=== PATIENT | male | born 1950 | race Caucasian/White ===

== ENCOUNTER 2021-01-16 14:40 | Inpatient (IN) | payer MEDICARE, OTHER ==
[~2021-01-16] VITALS: Ht 180.3 cm; Wt 122.0 kg
[2021-01-16 15:42] LABS: HEMOGLOBIN 15.2 gm/dl (14.0-17.5); RED BLOOD COUNT 4.86 M/UL (4.20-5.50); WHITE BLOOD COUNT 9.8 K/UL (4.5-11.0)
[2021-01-16] MEDS ORDERED: ALPRAZOLAM1 MG PO (20:10)
[2021-01-16] MEDS ORDERED: PREGABALIN200 MG PO (20:11)
[2021-01-16] MEDS ORDERED: HYDROCODON-ACE1 EAC6 PO (20:11)
[2021-01-16] MEDS ORDERED: ATORVASTATIN CA40 MG PO (20:12)
[2021-01-16] MEDS ORDERED: CLOPIDOGREL75 MG PO (20:13)
[2021-01-16] MEDS ORDERED: CARAFATE 1 GM TA1 GM PO (20:13)
[2021-01-16] MEDS ORDERED: COLCHICINE0.6 MG PO (20:14)
[2021-01-16] MEDS ORDERED: FLOMAX 0.4 MG0.4 MG PO (20:15)
[2021-01-16] MEDS ORDERED: ESOMEPRAZOLE MA40 MG PO (20:15)
[2021-01-16] MEDS ORDERED: HYDROXYZINE PAM25 MG PO (20:17)
[2021-01-16] MEDS ORDERED: LISINOPRIL20 MG PO (20:19)
[2021-01-16] MEDS ORDERED: JARDIANCE25 MG PO (20:19)
[2021-01-16] MEDS ORDERED: METOPROLOL SUCC25 MG PO (20:27)
[2021-01-16] MEDS ORDERED: NOVOLIN R100 UNIT/1 SQ (20:30)
[2021-01-16] MEDS ORDERED: SERTRALINE HCL100 MG PO (20:31)
[2021-01-16] MEDS ORDERED: ROPINIROLE HCL2 MG PO (20:31)
[2021-01-16] MEDS ORDERED: TIZANIDINE HCL4 MG PO (20:32)
[2021-01-16] MEDS ORDERED: TOLTERODINE TART4 MG PO (20:33)
[2021-01-16] MEDS ORDERED: TOUJEO SOLO INJ 300 SQ (20:34)
[2021-01-16] MEDS ORDERED: ADVAIR 500-501 EACH INH (20:35)
[2021-01-17 07:36] LABS: HEMOGLOBIN 15.3 gm/dl (14.0-17.5); RED BLOOD COUNT 4.83 M/UL (4.20-5.50); WHITE BLOOD COUNT 8.4 K/UL (4.5-11.0)
--- NOTE | 2021-01-18 06:10 | NUR ---
unable to hang vanc at [id number] trough still pending
[2021-01-18 06:40] LABS: HEMOGLOBIN 13.4 gm/dl (14.0-17.5); RED BLOOD COUNT 4.6 M/UL (4.20-5.50); WHITE BLOOD COUNT 7.7 K/UL (4.5-11.0)
[2021-01-18 06:48] LABS: BUN/CREATININE RATIO 16 (0-10)
== END 2021-01-18 13:21 | disposition left against medical advice (07) | DRG 264 ==
LOC: ER1 14:40 → CDU 18:40 → M/S 18:40
PROVIDERS: Physician Assistant; ADMIT Internal Medicine
PROC: 0JBQ0ZZ Excision of Right Foot Subcutaneous Tissue and Fascia, Open Approach (ICD-10-PCS; principal; 2021-01-17)
PROC: 0J9Q0ZZ Drainage of Right Foot Subcutaneous Tissue and Fascia, Open Approach (ICD-10-PCS; 2021-01-17)
DX: E11.52 Type 2 diabetes mellitus with diabetic peripheral angiopathy with gangrene (principal); L03.115 Cellulitis of right lower limb; L02.413 Cutaneous abscess of right upper limb; N17.9 Acute kidney failure, unspecified; E11.628 Type 2 diabetes mellitus with other skin complications; Z20.822 Contact with and (suspected) exposure to COVID-19; E11.40 Type 2 diabetes mellitus with diabetic neuropathy, unspecified; Z79.4 Long term (current) use of insulin
CPT/HCPCS: 36415; 73590; 73630; 80048; 80053; 80202; 82550; 82962; 83036; 83540; 83550; 83605; 83735; 84100; 85025; 85652; 86140; 87040; 87070; 87205; 93926; 94640; 94664; 94760; 99284; J0692; J2270; J2405; J2543; J3370; J7030; J7070; Q0177; U0002

== ENCOUNTER → 2021-08-04 | Outpatient (CLI) | payer MEDICARE ==
[~2021-08-04] MED LIST: ADVAIR 500-501 EACH INH; ALPRAZOLAM1 MG PO; ATORVASTATIN CA40 MG PO; CARAFATE 1 GM TA1 GM PO; CLOPIDOGREL75 MG PO; COLCHICINE0.6 MG PO; ESOMEPRAZOLE MA40 MG PO; FLOMAX 0.4 MG0.4 MG PO; HYDROCODON-ACE1 EAC6 PO; HYDROXYZINE PAM25 MG PO; JARDIANCE25 MG PO; LISINOPRIL20 MG PO; METOPROLOL SUCC25 MG PO; NOVOLIN R100 UNIT/1 SQ; PREGABALIN200 MG PO; ROPINIROLE HCL2 MG PO; SERTRALINE HCL100 MG PO; TIZANIDINE HCL4 MG PO; TOLTERODINE TART4 MG PO; TOUJEO SOLO INJ 300 SQ
== END ==
LOC: KOH-I 14:38
DX: M79.671 Pain in right foot (principal); M25.571 Pain in right ankle and joints of right foot; M79.89 Other specified soft tissue disorders; S92.511A Displaced fracture of proximal phalanx of right lesser toe(s), initial encounter for closed fracture
CPT/HCPCS: 73610; 73630

== ENCOUNTER 2022-02-13 11:39 | Emergency (ER) | payer MEDICARE ==
[2022-02-13] MEDS ORDERED: LEVOFLOXACIN500 MG PO (15:19)
[2022-02-13] MEDS ORDERED: AMOX TR-K CLV1 EAC4 PO (15:19)
== END 2022-02-13 15:51 | disposition home or self-care (01) ==
LOC: ER1 11:39
DX: E11.628 Type 2 diabetes mellitus with other skin complications (principal); E11.65 Type 2 diabetes mellitus with hyperglycemia; L03.115 Cellulitis of right lower limb; E78.5 Hyperlipidemia, unspecified; Z79.4 Long term (current) use of insulin; I11.9 Hypertensive heart disease without heart failure; E11.40 Type 2 diabetes mellitus with diabetic neuropathy, unspecified; F17.210 Nicotine dependence, cigarettes, uncomplicated
CPT/HCPCS: 73590; 82962; 87070; 87205; 99284